=== PATIENT | male | born 1945 | race Caucasian/White ===

== ENCOUNTER → 2019-01-25 | Outpatient (CLI) | payer MEDICARE, BC ==
--- NOTE | 2019-01-25 15:29 | US ---
EXAMINATION TYPE: US carotid duplex BILAT DATE OF EXAM: 01/25/2019 COMPARISON: NONE CLINICAL HISTORY: I65.23 Occlusion/stenosis of bilateral carotid arteries,I34.0 Nonrheumatic mitrall; prior smoker; recent chest pain EXAM MEASUREMENTS: RIGHT: Peak Systolic Velocity (PSV) cm/sec ----- Right CCA: 74.5 ----- Right ICA: 87.7 ----- Right ECA: 114.1 ICA/CCA ratio: 1.2 RIGHT: End Diastole cm/sec ----- Right CCA: 19.4 ----- Right ICA: 20.5 ----- Right ECA: 18.8 LEFT: Peak Systolic Velocity (PSV) cm/sec ----- Left CCA: 82.2 ----- Left ICA: 83.3 ----- Left ECA: 72.2 ICA/CCA ratio: 1.0 LEFT: End Diastole cm/sec ----- Left CCA: 18.3 ----- Left ICA: 18.3 ----- Left ECA: 9.5 VERTEBRALS (direction of flow): Right Vertebral: Antegrade Left Vertebral: Antegrade Rhythm: Normal Mild intimal wall changes are noted at right carotid bifurcation. Mild to moderate intimal wall vasquez es are seen in left ICA. PSV is wnl bilaterally. Grayscale, color Doppler, spectral Doppler imaging performed of the carotid arteries. Waveform analys is does not show significant stenosis of the internal carotid arteries. IMPRESSION: No hemodynamic significant stenosis of the proximal internal carotid arteries bilaterall y by Doppler criteria, an indirect measurement of carotid stenosis
--- NOTE | 2019-01-26 11:17 | ECHOF ---
Referral Reason:I65.23 Occlusion/stenosis,I34.0 Nonrheumatic sobia MEASUREMENTS -------- HEIGHT: 157.5 cm WEIGHT: 105.7 kg BP: RVIDd: 3.6 cm (< 3.3) IVSd: 1.3 cm (0.6 - 1.1) LVIDd: 4.6 cm (3.9 - 5.3) LVPWd: 1.2 cm (0.6 - 1.1) IVSs: 1.5 cm LVIDs: 3.6 cm LVPWs: 1.3 cm LA Diam: 4.0 cm (2.7 - 3.8) LAESV Index (A-L): 27.18 ml/m Ao Diam: 3.2 cm (2.0 - 3.7) AV Cusp: 2.0 cm (1.5 - 2.6) LA Diam: 4.8 cm (2.7 - 3.8) EPSS: 0.4 cm MV E Jarrett: 0.60 m/s MV DecT: 185 ms MV A Jarrett: 0.94 m/s MV E/A Ratio: 0.64 RAP: 5.00 mmHg RVSP: 11.11 mmHg MV EF SLOPE: 63.08 mm/s (70 - 150) MV EXCURSION: 2.11 cm (> 18.000) FINDINGS -------- Sinus rhythm. This was a technically adequate study. The left ventricular size is normal. There is mild concentric left ventricular hypertrophy. Overa ll left ventricular systolic function is low-normal with, an EF between 50 - 55 %. The right ventricle is normal in size. The left atrial size is normal. The right atrial size is normal. The aortic valve is trileaflet, and appears structurally normal. No aortic stenosis or regurgitation. Mild mitral regurgitation is present. Mild tricuspid regurgitation present. There is no evidence of pulmonary hypertension. The right v entricular systolic pressure, as measured by Doppler, is 11.11mmHg. There is no pulmonic regurgitation present. The aortic root size is normal. There is no pericardial effusion. CONCLUSIONS -------- 1. The left ventricular size is normal. 2. There is mild concentric left ventricular hypertrophy. 3. Overall left ventricular systolic function is low-normal with, an EF between 50 - 55 %. 4. The right ventricle is normal in size. 5. The left atrial size is normal. 6. The right atrial size is normal. 7. The aortic valve is trileaflet, and appears structurally normal. No aortic stenosis or regurgitati on. 8. Mild mitral regurgitation is present. 9. Mild tricuspid regurgitation present. 10. There is no evidence of pulmonary hypertension. 11. The right ventricular systolic pressure, as measured by Doppler, is 11.11mmHg. 12. There is no pulmonic regurgitation present. 13. The aortic root size is normal. 14. There is no pericardial effusion. CANDLE EXTRUSION MACHINE OPERATOR: Ayse Beckford RDCS
== END ==
LOC: RADECHMAIN 13:09
PROVIDERS: ATTEND Internal Medicine
DX: I65.23 Occlusion and stenosis of bilateral carotid arteries (principal); I08.1 Rheumatic disorders of both mitral and tricuspid valves
CPT/HCPCS: 93306; 93880

== ENCOUNTER 2020-07-17 11:59 | Inpatient (IN) | payer MEDICARE, BC ==
--- NOTE | 2020-07-17 12:55 | ED ---
General Adult HPI - General Chief complaint: Back Pain/Injury Stated complaint: Back Pain Time Seen by Provider: 07/17/20 12:17 Source: patient, EMS, RN notes reviewed Mode of arrival: EMS Limitations: no limitations - History of Present Illness Initial comments: Patient is a pleasant 75-year-old male presenting to the emergency department with lower back pain. Onset of symptoms was a week ago. PATIENT WAS BENDING DOWN. PATIENT HAD SUDDEN DISCOMFORT OF HIS RIGHT SCIATIC REGION EXTENDING ON THE RIGHT LEG. NO WEAKNESS. NO LOSS OF SENSATION. PATIENT DOES HAVE HISTORY OF SCIATICA SEVERAL TIMES PREVIOUSLY. PATIENT HAS SEEN A PRACTITIONER RECENTLY AND WAS GIVEN MUSCLE RELAXERS AND STEROIDS. NO TENDONS RETENTION OR BOWEL OR BLADDER. NO ABDOMINAL PAIN. - Related Data Home Medications Medication Instructions Recorded Confirmed Acetaminophen Tab [Tylenol Tab] 1,000 mg PO Q6HR PRN 07/17/20 07/17/20 Aspirin 81 mg PO HS 07/17/20 07/17/20 Cholecalciferol [Vitamin D3 (25 1,000 unit PO HS 07/17/20 07/17/20 Mcg = 1000 Iu)] Flexeril (Unknown Dose) 1 tab PO DIRECTED 07/17/20 07/17/20 Glucosamine/Chondr [place] A Sod [Osteo 1 tab PO HS 07/17/20 07/17/20 Bi-Flex Caplet] Benjamin-3 Fatty Acids/Fish Oil [Fish 1 cap PO HS 07/17/20 07/17/20 Oil 1,000 mg Softgel] Solu-Medrol 120 mg IM ONCE 07/17/20 07/17/20 methylPREDNISolone [Medrol Dose See Taper PO DIRECTED 07/17/20 07/17/20 Pack] Allergies Allergy/AdvReac Type Severity Reaction Status Date / Time No Known Allergies Allergy Verified 07/17/20 13:04 Review of Systems ROS Statement: Those systems with pertinent positive or pertinent negative responses have been documented in the HPI. ROS Other: All systems not noted in ROS Statement are negative. Constitutional: Denies: fever Eyes: Denies: eye pain ENT: Denies: ear pain Respiratory: Denies: cough Cardiovascular: Denies: chest pain Endocrine: Denies: fatigue Gastrointestinal: Denies: abdominal pain Genitourinary: Denies: dysuria Musculoskeletal: Reports: as per HPI, back pain Skin: Denies: rash Neurological: Denies: weakness Past Medical History Past Medical History: No Reported History History of Any Multi-Drug Resistant Organisms: None Reported Past Surgical History: Orthopedic Surgery Past Psychological History: No Psychological Hx Reported Smoking Status: Former smoker Past Alcohol Use History: Rare Past Drug Use History: None Reported General Exam Limitations: no limitations General appearance: alert, in no apparent distress Head exam: Present: normocephalic Eye exam: Present: normal appearance Neck exam: Present: normal inspection Respiratory exam: Present: normal lung sounds bilaterally Cardiovascular Exam: Present: regular rate, normal rhythm Expanded Peripheral pulses: 2+: Posterior Tibialis (R), Posterior Tibialis (L), Dorsalis Pedis (R), Dorsalis Pedis (L) GI/Abdominal exam: Present: soft. Absent: distended, tenderness, pulsatile mass Extremities exam: Present: normal inspection. Absent: pedal edema, calf tenderness Back exam: Present: tenderness (Mild tenderness right sacroiliac region). Absent: vertebral tenderness Neurological exam: Present: alert. Absent: motor sensory deficit Expanded Sensory exam: Lower Extremity Light Touch: Normal Motor strength exam: RUE: 5, LUE: 5, RLE: 5, LLE: 5 Eye Response: (4) open spontaneously Motor Response: (6) obeys commands Verbal Response: (5) oriented Psychiatric exam: Present: normal affect, normal mood Skin exam: Present: normal color Course Vital Signs 07/17/20 12:01 Temperature 98.7 F Pulse Rate 79 Respiratory 18 Rate Blood Pressure 141/94 O2 Sat by Pulse 95 Oximetry EKG Findings - EKG Comments: EKG Findings:: Normal sinus rhythm 82. WI 202. QRS 108. QT 370. QTc 441. Normal axis. Inferior Q waves. Septal Q waves. No acute ST change. Medical Decision Making - Medical Decision Making Patient reevaluated. Patient was able to ambulate however had significant discomfort. Case was discussed in detail with Dr. Ba who will admit his patient and does request blood work and sed rate as well as computed tomography scan and orthopedic evaluation. Patient updated. - Radiology Data Radiology results: image reviewed (Lumbar x-ray shows degenerative disc disease and acid arthropathy. X-ray of the right hip shows no fracture or dislocation. Chronic changes proximal femur, difficult to exclude underlying infection.) Disposition Clinical Impression: Sciatica, Hip pain, Ataxia Disposition: ADMITTED IP TO THIS HOSP Is patient prescribed a controlled substance at d/c from ED?: No Referrals: Clarita Ba MD [Primary Care Provider] - 1-2 days Decision Time: 14:59
--- NOTE | 2020-07-17 13:30 | XR ---
EXAMINATION TYPE: XR Hip RT and AP Pelvis DATE OF EXAM: 07/17/2020 COMPARISON: NONE HISTORY: Pain TECHNIQUE: A single AP view of the pelvis is obtained. Two views of the right hip are obtained. FINDINGS: There is no acute fracture/dislocation evident in the pelvis. The hip and sacroiliac join ts appear symmetric and unremarkable. The overlying soft tissue appears unremarkable. Two views of right hip show no acute fracture or dislocation. There is cortical thickening, distortio n of the proximal right femur, there is an indwelling screw and probable heterotopic new bone formati on. Vascular calcifications are present within the pelvis. Possible injection granuloma present, oval calcification is indeterminate and measures 2.5 cm in cephalad to caudal dimension at the level of t he proximal right femur. IMPRESSION: There is no acute fracture or dislocation in the pelvis or right hip. Chronic changes of the proximal right femur, difficult to exclude underlying infection, bone scan may be of benefit as indicated.
--- NOTE | 2020-07-17 13:33 | XR ---
Lumbar spine HISTORY: Chronic low back pain 3 views of the lumbar spine Lumbar vertebral bodies show preserved height, alignment, and bone mineralization. There is multileve l spondylosis. Sclerosis is present in the posterior elements of the lower lumbar spine. There is a m ild spinal curvature. Some mild loss of disc height L4-5 and L5-S1. Atherosclerotic vascular calcific ations present within the aorta. IMPRESSION: Degenerative disc disease and facet arthropathy.
[2020-07-17] MEDS ORDERED: NALOXONE 0.4 MG/ML 1 ML VIAL IV PRN (15:00)
[2020-07-17] MEDS ORDERED: traMADol 50 MG TAB PO PRN (15:00)
[2020-07-17 15:45] LABS: Basophils # (A) 0.1 k/uL (0-0.2); Basophils % (A) 0 %; Eosinophils # (A) 0.1 k/uL (0-0.7); Eosinophils % (A) 1 %; HCT 46.1 % (39.0-53.0); HGB 15.4 gm/dL (13.0-17.5); Lymphocytes # (A) 0.8 k/uL (1.0-4.8); Lymphocytes % (A) 8 %; MCH 29.5 pg (25.0-35.0); MCHC 33.4 g/dL (31.0-37.0); MCV 88.3 fL (80.0-100.0); Mean Platelet Volume 6.8; Monocytes # (A) 0.3 k/uL (0-1.0); Monocytes % (A) 3 %; Neutrophils # (A) 9.1 k/uL (1.3-7.7); Neutrophils % (A) 87 %; Platelet Count 211 k/uL (150-450); RBC 5.21 m/uL (4.30-5.90); RDW 12.6 % (11.5-15.5); WBC 10.4 k/uL (3.8-10.6)
[2020-07-17 15:55] LABS: Partial Thromboplastin Time 24.3 sec (22.0-30.0); Prothrombin Time 10.8 sec (9.0-12.0)
[2020-07-17 16:02] LABS: Chloride 105 mmol/L (98-107)
[2020-07-17 16:04] LABS: ALT 19 U/L (4-49); AST 24 U/L (17-59); African American GFR (CKD) >90 (>60 ml/min/1.73 sqM); Albumin 4.4 g/dL (3.5-5.0); Alkaline Phosphatase 56 U/L (38-126); Anion Gap 7 mmol/L; Blood Urea Nitrogen 16 mg/dL (9-20); Calcium 9.2 mg/dL (8.4-10.2); Carbon Dioxide 24 mmol/L (22-30); Glucose 116 mg/dL (74-99); Non-African American GFR(CKD) 89 (>60 ml/min/1.73 sqM); Potassium 4.5 mmol/L (3.5-5.1); Sodium 136 mmol/L (137-145); Total Bilirubin 1.4 mg/dL (0.2-1.3); Total Protein 7.5 g/dL (6.3-8.2)
[2020-07-17 16:28] LABS: Erythrocyte Sedimentation Rate 72 mm/hr (0-15)
--- NOTE | 2020-07-17 16:41 | CT ---
EXAMINATION TYPE: CT hip RT w con DATE OF EXAM: 07/17/2020 COMPARISON: X-ray 07/17/2020 HISTORY: Right hip pain, eval for infection. CT DLP: 956.1 mGycm Automated exposure control for dose reduction was used. CONTRAST: Performed with IV Contrast, patient injected with 100 mL of Isovue 300. FINDINGS: There is arthropathy of the hip with a chronic appearing deformity of the proximal diaphysis of the f emur. Appears to be metallic screw traversing the proximal diaphysis of the femur. No destructive neo nges. Herniation pit involving the right femoral neck incidentally noted. Hypertrophic change of the acetabulum can be associated with femoral acetabular impingement. Heterotopic ossification adjacent t o the greater trochanter. Hypertrophic and degenerative change of the lower lumbar spine. IMPRESSION: CHRONIC DEFORMITY WITH POSTSURGICAL SCREW WITHIN THE PROXIMAL FEMUR. NO DESTRUCTIVE CHANGE. NO ACUTE FRACTURE. IF THERE IS CLINICAL CONCERN FOR INFECTION CORRELATE WITH TRIPLE PHASE BONE SCAN.
[2020-07-17] MEDS: MORPHINE SULFATE 4 MG/ML SYRINGE IV PRN ×2 (17:42→21:29)
[2020-07-17] MEDS: SODIUM CHLORIDE 0.9% 1,000 ML IV SCH (21:28)
[2020-07-18] MEDS: HEPARIN SODIUM,PORCINE 5,000 UNIT/ML 1 ML VIAL SQ SCH ×4 (00:17→23:15)
[2020-07-18] MEDS: MORPHINE SULFATE 4 MG/ML SYRINGE IV PRN ×3 (04:39→14:17)
[2020-07-18 06:14] LABS: Basophils # (A) 0.1 k/uL (0-0.2); Basophils % (A) 1 %; Eosinophils # (A) 0.1 k/uL (0-0.7); Eosinophils % (A) 1 %; HCT 43.5 % (39.0-53.0); Lymphocytes % (A) 22 %; MCHC 32.2 g/dL (31.0-37.0); MCV 90.2 fL (80.0-100.0); Mean Platelet Volume 7.1; Monocytes # (A) 0.7 k/uL (0-1.0); Monocytes % (A) 7 %; Neutrophils # (A) 6.4 k/uL (1.3-7.7); Neutrophils % (A) 68 %; Platelet Count 199 k/uL (150-450); RBC 4.82 m/uL (4.30-5.90); RDW 12.8 % (11.5-15.5); WBC 9.4 k/uL (3.8-10.6)
[2020-07-18] MEDS: PANTOPRAZOLE 40 MG TABLET PO SCH (08:48)
[2020-07-18] MEDS: SODIUM CHLORIDE 0.9% 1,000 ML IV SCH ×2 (09:02→23:15)
[2020-07-18 09:03] LABS: African American GFR (CKD) 100.6 (60.0-200.0); Albumin/Globulin Ratio 1.82 (1.60-3.17); Anion Gap 8.3 mmol/L (4.00-12.00); BUN/Creat Ratio 26.25 Ratio (12.00-20.00); C Reactive Protein 1.8 mg/dL (0.0-0.8); Calcium 8.6 mg/dL (8.7-10.3); Carbon Dioxide 26.7 mmol/L (21.6-31.8); Globulin 2.2 g/dL (1.6-3.3); Non-African American GFR(CKD) 86.8 (60.0-200.0); Potassium 4.5 mmol/L (3.5-5.5); Total Bilirubin 1.1 mg/dL (0.3-1.2); Total Protein 6.2 g/dL (6.2-8.2)
[2020-07-18] MEDS ORDERED: ONDANSETRON 4 MG/2 ML VIAL IVP PRN (11:38)
[2020-07-18 12:39] LABS: Erythrocyte Sedimentation Rate 17 mm/Hr (0-20)
--- NOTE | 2020-07-18 14:13 | NM ---
EXAMINATION TYPE: NM bone 3 phase DATE OF EXAM: 07/18/2020 COMPARISON: CT scan 07/15/2020 HISTORY: Pain Triple phase bone scintigraphy was performed following the injection of 24.3 mCi Tc 99m MDP. Immedia te images and 5.5 hours post injection images acquired. FINDINGS: There is increased flow to the right thigh on the perfusion images. There is asymmetric faint increased uptake along the lateral margin of the right thigh on the soft ti ssue blood pool images. There is faint uptake involving the deformity of the proximal right femur likely chronic and related to previous surgery. IMPRESSION: 1. No diagnostic evidence of osteomyelitis. The faint asymmetric increased uptake involving the right femur likely related to the marked deformity and previous surgery and trauma to the right femur. Cor relate clinically. 2. There is asymmetric flow. If there is concern for a cellulitis correlate clinically.
[2020-07-18] MEDS ORDERED: SENNOSIDES 8.6 MG TAB PO PRN (14:31)
[2020-07-18] MEDS: LOSARTAN 25 MG TAB PO SCH (14:34)
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
--- NOTE | 2020-07-18 15:54 | P.CNOR ---
History of Present Illness - [facility] Consult date: 07/18/20 Consult reason: other (Lumbar radiculopathy) History of present illness: Patient is a pleasant 75-year-old male seen at bedside this afternoon consultation for right leg pain. Patient states that he bent over proximally 1 week ago and developed sudden sharp shooting pain down his right leg. He states pain rates down into the top his foot at times. He has intermittent numbness or tingling. He acknowledges he has no groin or hip pain with range of motion. He has pain with straight leg raising. He is a prior ORIF of the right femur in the 1960s. He's had no recent trauma or injury to the right hip. He denies calf pain, fever, chills, chest pain, shortness breath, nausea, vomiting, dizziness, headaches, slurred speech or other. Review of Systems All systems: negative Constitutional: Denies chills, Denies fever Eyes: denies blurred vision, denies pain Ears, nose, mouth and throat: Denies headache, Denies sore throat Cardiovascular: Denies chest pain, Denies shortness of breath Respiratory: Denies cough Gastrointestinal: Denies abdominal pain, Denies diarrhea, Denies nausea, Denies vomiting Musculoskeletal: Denies myalgias Integumentary: Denies pruritus, Denies rash Neurological: Denies numbness, Denies weakness Psychiatric: Denies anxiety, Denies depression Endocrine: Denies fatigue, Denies weight change Past Medical History Past Medical History: No Reported History History of Any Multi-Drug Resistant Organisms: None Reported Past Surgical History: Orthopedic Surgery Past Psychological History: No Psychological Hx Reported Smoking Status: Former smoker Past Alcohol Use History: Rare Additional Past Alcohol Use History / Comment(s): Patient was a smoker of one pack per day for 10 years and quit over 30 years ago. He drinks alcohol rarely. No marijuana or illicit drug use. He is retired from . He is and lives at home with his . Past Drug Use History: None Reported - Past Family History Father Additional Family Medical History / Comment(s): Father at age 96 with history of diabetes. Mother Additional Family Medical History / Comment(s): Mother at age 88 with history of osteoarthritis. Sister(s) Additional Family Medical History / Comment(s): Patient has 2 sisters and one is alive at age 81 with history of heart problems. One has multiple medical problems. Brother(s) Additional Family Medical History / Comment(s): Patient has 3 brothers. One has osteoarthritis, one has balance issues. They may both have hypertension. Patient has 2 sons. One son has history of diabetes and neurosarcoidosis, chronic kidney disease. One son has sarcoidosis. Medications and Allergies Home Medications Medication Instructions Recorded Confirmed Type Acetaminophen Tab [Tylenol Tab] 1,000 mg PO Q6HR PRN 07/17/20 07/17/20 History Aspirin 81 mg PO HS 07/17/20 07/17/20 History Cholecalciferol [Vitamin D3 (25 1,000 unit PO HS 07/17/20 07/17/20 History Mcg = 1000 Iu)] Flexeril (Unknown Dose) 1 tab PO DIRECTED 07/17/20 07/17/20 History Glucosamine/Chondr [place] A Sod [Osteo 1 tab PO HS 07/17/20 07/17/20 History Bi-Flex Caplet] [place]-3 Fatty Acids/Fish Oil [Fish 1 cap PO HS 07/17/20 07/17/20 History Oil 1,000 mg Softgel] Solu-Medrol 120 mg IM ONCE 07/17/20 07/17/20 History methylPREDNISolone [Medrol Dose See Taper PO DIRECTED 07/17/20 07/17/20 History Pack] Allergies Allergy/AdvReac Type Severity Reaction Status Date / Time No Known Allergies Allergy Verified 07/17/20 13:04 Physical Examination Inspection of the low back is benign. There is no step-off, erythema, wounds or evidence of fluid collection. There is paraspinal spasming. Right hip is benign to inspection. There is well-healed surgical wound the lateral aspect of the right hip. There is no deformity. He has no pain with internal or external rotation of the right hip. He has pain with right straight leg raising consistent with radiculopathy. Motor is grossly intact in the hip flexors, quadriceps, anterior tibialis and gastrocsoleus. He has weakness in the right EHL proximally 4 out of 5. The remainder is 5 out of 5. Sensation to light t ouch is intact L2 through S1 equal bilaterally. Reflexes are 1+ knee jerk and ankle jerk. There is no clonus or pathological reflexes. Calf is soft nontender. The 2+ dorsalis pedis pulse was 2 second capillary refill. Results X-rays and CT of the right hip show no fracture or evidence of infection/osteomyelitis. There is evidence previous hardware and prior surgery. No acute findings. There is mild degenerative changes. - Labs Labs: Abnormal Lab Results - Last 24 Hours (Table) 07/17/20 07/17/20 07/18/20 Range/Units 15:29 15:29 05:40 Neutrophils # 9.1 H (1.3-7.7) k/uL Lymphocytes # 0.8 L (1.0-4.8) k/uL ESR 72 H (0-15) mm/hr Sodium 136 L (137-145) mmol/L BUN/Creatinine Ratio 26.25 H (12.00-20.00) Ratio Glucose 116 H (74-99) mg/dL Calcium 8.6 L (8.7-10.3) mg/dL Total Bilirubin 1.4 H (0.2-1.3) mg/dL C-Reactive Protein 1.8 H (0.0-0.8) mg/dL H & H 07/17/20 07/18/20 Range/Units 15:29 05:40 Hgb 15.4 14.0 (13.0-17.5) gm/dL Hct 46.1 43.5 (39.0-53.0) % Coagulation 07/17/20 Range/Units 15:29 INR 1.0 (<1.2) Result Diagrams: 07/18/20 05:40 07/18/20 05:40 - Diagnostic results Hip x-ray: report reviewed, image reviewed Hip CT: report reviewed, image reviewed Assessment and Plan (1) Sciatica Narrative/Plan: Patient is likely suffering from lumbar radiculopathy on the right side with weakness in the EHL correlating with the L5 nerve root. The right hip joint itself appears be benign. He may be weightbearing as tolerated. We'll obtain MRI of the lumbar spine to further assess for neural impingement. We'll also start him on corticosteroids. Continue with pain management per primary team. We'll follow up after the MRI and make further recommendations as appropriate. Current Visit: Yes Status: Acute Priority: Medium Code(s): M54.30 - SCIATICA, UNSPECIFIED SIDE SNOMED Code(s): 95105179 (2) Lumbar radiculopathy, acute Current Visit: Yes Status: Acute Priority: Medium Code(s): M54.16 - RADICULOPATHY, LUMBAR REGION SNOMED Code(s): 841553851 Time with Patient: Less than 30
[2020-07-18] MEDS ORDERED: methocarbamoL 500 MG TAB PO PRN (16:08)
[2020-07-18] MEDS: SENNOSIDES-DOCUSATE SODIUM 1 EACH TAB PO SCH (16:33)
[2020-07-18] MEDS: methylPREDNISolone SOD SUCCI 40 MG/ML 1 ML VIAL IV SCH ×2 (16:33→23:15)
[2020-07-18] MEDS: HYDROcodone/APAP 5-325MG 1 EACH TAB PO PRN ×2 (16:35→23:21)
--- NOTE | 2020-07-18 18:48 | MR ---
EXAMINATION TYPE: MR lumbar spine wo con DATE OF EXAM: 07/18/2020 COMPARISON: None HISTORY: Low back pain into rt leg CONTRAST: 0 mL intravenous Gadavist. TECHNIQUE: Multiplanar, multisequence images of the lumbar spine were acquired. FINDINGS: L5-S1: There is central disc bulge into the epidural space. No thecal sac contact or exiting nerve ro ot contact is evident. There is increased signal within the posterior disc space on T2-weighted seque nces compatible with an annular tear. No spinal canal stenosis. No foraminal stenosis. L4-L5: There is a moderately large right paracentral disc herniation extending beyond the endplate of L5. This has exiting nerve root compression and displacement. No AP spinal canal stenosis is present . The neural foramen are patent. L3-L4: Mild disc bulge has anterior thecal sac flattening. No spinal canal stenosis. No foraminal s tenosis. Facet hypertrophy is present with posterior lateral thecal sac compression. Mild lateral can al narrowing at the ligamentum flavum laxity may be present. L2-L3: Broad-based disc bulge is present with mild anterior thecal sac flattening No spinal canal st enosis. No foraminal stenosis. Facet hypertrophy is posterior lateral thecal sac compression on the right.. L1-L2: No significant disc bulge or disc herniation. No spinal canal stenosis. No foraminal stenosi s. . T12-L1: No significant disc bulge or disc herniation. No spinal canal stenosis. No foraminal stenos is. . Cyst is on the left kidney. Cord terminates at the T12-L1 level. IMPRESSION: 1. Moderate to large right paracentral disc herniation L4-5 with the exiting L4 nerve root displaceme nt correlate with the radicular symptoms. 2. Annular tear L5-S1 without thecal sac or exiting nerve root contact. 3. Mild disc bulging L3-4, L2-3
[2020-07-18 20:43] LABS: Glucose,Whole Blood 142 mg/dL (75-99)
[2020-07-18] MEDS ORDERED: SENNOSIDES 8.6 MG TAB PO SCH (21:00)
--- NOTE | 2020-07-18 22:17 | P.CONS ---
History of Present Illness - Reason for Consult Consult date: 07/18/20 Right hip pain rule out osteomyelitis Requesting physician: Clarita Ba - Chief Complaint Back pain and right hip pain worsening x few days - History of Present Illness Patient is a 75-year-old male with a past medical history significant for chronic back pain and she had taken in this patient also have a history of femoral fracture in 1962 and did have a operative repair of the same with that AND pains patient is now presenting to [facility] ER with chief complaints of right hip pain that has been progressively getting worse for the last few days patient denies having a history of fall or trauma and she does in the pain to be more of a dull aching to sharp and is radiating across the back to the right hip and the leg area and densities almost 10 out of 10 patient denies having any fever or any chills. Denies having any swelling or any redness to the right hip area with the symptom for the patient presented to [facility] ER the patient was evaluated by the physician on arrival. The patient has been afebrile, initial sed rate was 72 repeat this morning showing 17, CRP of 1.8, the patient did have x-rays of the pelvis right hip and no evidence of any fracture or dislocation chronic changes of the proximal right femur difficult to exclude underlying infection, the patient subsequently did have a CT of the right hip 80 shows chronic deformity with postsurgical scleral and the possible fever no destructive changes no acute fracture if there is concern for infection correlate with triple phase bone scan per radiology recommendation which was done and was not suspicious for cellulitis either infectious disease was consulted [facility] to rule outOsteomyelitis Review of Systems Positive point has been mentioned in the HPI rest of the systems are negative Past Medical History Past Medical History: No Reported History History of Any Multi-Drug Resistant Organisms: None Reported Past Surgical History: Orthopedic Surgery Past Psychological History: No Psychological Hx Reported Smoking Status: Former smoker Past Alcohol Use History: Rare Additional Past Alcohol Use History / Comment(s): Patient was a smoker of one pack per day for 10 years and quit over 30 years ago. He drinks alcohol rarely. No marijuana or illicit drug use. He is retired from . He is and lives at home with his . Past Drug Use History: None Reported - Past Family History Father Additional Family Medical History / Comment(s): Father at age 96 with history of diabetes. Mother Additional Family Medical History / Comment(s): Mother at age 88 with history of osteoarthritis. Sister(s) Additional Family Medical History / Comment(s): Patient has 2 sisters and one is alive at age 81 with history of heart problems. One has multiple medical problems. Brother(s) Additional Family Medical History / Comment(s): Patient has 3 brothers. One has osteoarthritis, one has balance issues. They may both have hypertension. Patient has 2 sons. One son has history of diabetes and neurosarcoidosis, chronic kidney disease. One son has sarcoidosis. Medications and Allergies Home Medications Medication Instructions Recorded Confirmed Type Acetaminophen Tab [Tylenol Tab] 1,000 mg PO Q6HR PRN 07/17/20 07/17/20 History Aspirin 81 mg PO HS 07/17/20 07/17/20 History Cholecalciferol [Vitamin D3 (25 1,000 unit PO HS 07/17/20 07/17/20 History Mcg = 1000 Iu)] Flexeril (Unknown Dose) 1 tab PO DIRECTED 07/17/20 07/17/20 History Glucosamine/Chondr [place] A Sod [Osteo 1 tab PO HS 07/17/20 07/17/20 History Bi-Flex Caplet] [place]-3 Fatty Acids/Fish Oil [Fish 1 cap PO HS 07/17/20 07/17/20 History Oil 1,000 mg Softgel] Solu-Medrol 120 mg IM ONCE 07/17/20 07/17/20 History methylPREDNISolone [Medrol Dose See Taper PO DIRECTED 07/17/20 07/17/20 History Pack] Allergies Allergy/AdvReac Type Severity Reaction Status Date / Time No Known Allergies Allergy Verified 07/17/20 13:04 Physical Exam Vitals: Vital Signs Temp Pulse Pulse Resp BP BP Pulse Ox 07/18/20 14:46 98.4 F 78 18 171/83 94 L 07/18/20 12:01 98.6 F 75 20 158/91 92 L 07/18/20 07:00 98.1 F 72 18 154/84 94 L 07/18/20 00:40 97.9 F 82 16 146/74 92 L 07/17/20 19:22 97.9 F 78 16 159/84 95 07/17/20 16:38 74 17 148/89 Intake and Output 07/18/20 07/18/20 07/18/20 06:59 14:59 22:59 Output Total 400 Balance -400 Output: Urine 400 Other: # Voids 3 GENERAL DESCRIPTION: An elderly male lying in bed, no distress. No tachypnea or accessory muscle of respiration use. HEENT: Shows Pallor , no scleral icterus. Oral mucous membrane is dry. No pharyngeal erythema or thrush NECK: Trachea central, no thyromegaly. LUNGS: Unlabored breathing. Clear to auscultation anteriorly. No wheeze or crac kle. HEART: S1, S2, regular rate and rhythm. No loud murmur ABDOMEN: Soft, no tenderness , guarding or rigidity, no organomegaly EXTREMITIES: No edema of feet. Right hip currently with no swelling no redness no significant point tenderness SKIN: No rash, no masses palpable. NEUROLOGICAL: The patient is awake, alert, oriented x3, mood and affect normal. Results CBC & Chem 7: 07/18/20 05:40 07/18/20 05:40 Labs: Abnormal Lab Results - Last 24 Hours (Table) 07/17/20 07/17/20 07/18/20 Range/Units 15:29 15:29 05:40 ESR 72 H (0-15) mm/hr Sodium 136 L (137-145) mmol/L BUN/Creatinine Ratio 26.25 H (12.00-20.00) Ratio Glucose 116 H (74-99) mg/dL Calcium 8.6 L (8.7-10.3) mg/dL Total Bilirubin 1.4 H (0.2-1.3) mg/dL C-Reactive Protein 1.8 H (0.0-0.8) mg/dL Assessment and Plan Assessment: 1- patient presented to hospital with right hip pain in this patient who did have chronic back pain for underlying prostatitis and a previous history of right femur fracture patient currently denies any fever and no elevated white count sed rate and CRP not elevated and is no evidence of any swelling or redness to the right hip area clinically suspicious for underlying septic arthritis and more likely related to arthritis of the right hip or radiating pain from his lumbosacral spine area, for which an MRI has been ordered currentl y pending (1) Right hip pain Current Visit: Yes Status: Acute Code(s): M25.551 - PAIN IN RIGHT HIP SNOMED Code(s): 53041140 Plan: 1- clinic suspicion is low for cellulitis hence we'll hold on any systemic antibiotic therapy at this point 2-await MRI of the lumbosacral spine completed 3- pain management for admitting team We will follow on clinical condition and cultures to further adjust medication if needed Thank you for this consultation will follow this patient with you Time with Patient: Greater than 30
[2020-07-19] MEDS: HEPARIN SODIUM,PORCINE 5,000 UNIT/ML 1 ML VIAL SQ SCH ×3 (07:17→23:13)
[2020-07-19] MEDS: PANTOPRAZOLE 40 MG TABLET PO SCH (07:27)
[2020-07-19] MEDS: methylPREDNISolone SOD SUCCI 40 MG/ML 1 ML VIAL IV SCH ×3 (07:27→23:12)
[2020-07-19] MEDS: LOSARTAN 25 MG TAB PO SCH (07:27)
[2020-07-19] MEDS: HYDROcodone/APAP 5-325MG 1 EACH TAB PO PRN ×3 (07:27→23:13)
[2020-07-19] MEDS: SENNOSIDES-DOCUSATE SODIUM 1 EACH TAB PO SCH (07:27)
[2020-07-19 07:37] LABS: Glucose,Whole Blood 137 mg/dL (75-99)
--- NOTE | 2020-07-19 10:38 | P.CNOR ---
History of Present Illness - [facility] Consult date: 07/19/20 Consult reason: other (right lower extremity radiculopathy) History of present illness: patient is a very pleasant 75-year-old male with chief complaint of right lower extremity and hip pain. Patient is an avid golfer and normally gets around quite well but he says that one week ago he was lifting his boat trailer and had sudden acute pain in his right hip down his right lower extremity. He says that he has had issues with his back since 1962 and once a year or so he has is acute pain in his right leg but this is worse than normal. He says the pain extends down the back of his hip and thigh down to his calf and foot. He denies problems with his left lower extremity. he was initially worked up in regards to his hip is everywhere about possible infection at the hip but that has shown to be negative. He denies changes in his bowel or bladder function. He denies any fevers chills. Denies any chest pain or shortness breath. Review of Systems as stated per HPI. He says that his leg feels like to give out when he tries to move but he was able get out of bed today with therapy and he feels like he did okay. He denies changes bowel bladder function. Denies any fevers chills. Denies any chest pain. Past Medical History Past Medical History: No Reported History History of Any Multi-Drug Resistant Organisms: None Reported Past Surgical History: Orthopedic Surgery Past Psychological History: No Psychological Hx Reported Smoking Status: Former smoker Past Alcohol Use History: Rare Additional Past Alcohol Use History / Comment(s): Patient was a smoker of one pack per day for 10 years and quit over 30 years ago. He drinks alcohol rarely. No marijuana or illicit drug use. He is retired from . He is and lives at home with his . Past Drug Use History: None Reported - Past Family History Father Additional Family Medical History / Comment(s): Father at age 96 with his tory of diabetes. Mother Additional Family Medical History / Comment(s): Mother at age 88 with history of osteoarthritis. Sister(s) Additional Family Medical History / Comment(s): Patient has 2 sisters and one is alive at age 81 with history of heart problems. One has multiple medical problems. Brother(s) Additional Family Medical History / Comment(s): Patient has 3 brothers. One has osteoarthritis, one has balance issues. They may both have hypertension. Patient has 2 sons. One son has history of diabetes and neurosarcoidosis, chronic kidney disease. One son has sarcoidosis. Medications and Allergies Home Medications Medication Instructions Recorded Confirmed Type Acetaminophen Tab [Tylenol Tab] 1,000 mg PO Q6HR PRN 07/17/20 07/17/20 History Aspirin 81 mg PO HS 07/17/20 07/17/20 History Cholecalciferol [Vitamin D3 (25 1,000 unit PO HS 07/17/20 07/17/20 History Mcg = 1000 Iu)] Flexeril (Unknown Dose) 1 tab PO DIRECTED 07/17/20 07/17/20 History Glucosamine/Chondr [place] A Sod [Osteo 1 tab PO HS 07/17/20 07/17/20 History Bi-Flex Caplet] [place]-3 Fatty Acids/Fish Oil [Fish 1 cap PO HS 07/17/20 07/17/20 History Oil 1,000 mg Softgel] Solu-Medrol 120 mg IM ONCE 07/17/20 07/17/20 History methylPREDNISolone [Medrol Dose See Taper PO DIRECTED 07/17/20 07/17/20 History Pack] Allergies Allergy/AdvReac Type Severity Reaction Status Date / Time No Known Allergies Allergy Verified 07/17/20 13:04 Physical Examination Osteopathic Statement: *. No significant issues noted on an osteopathic structural exam other than those noted in the History and Physical/Consult. - L Spine: dermatomal strength & reflexes right Strength: hip flexion: 5/5 (His back is nontender over the midline. Pelvis is stable. He has positive straight leg raise on the right. He has sustained dorsal flexion plantarflexion and EHL with 5 out of 5 strength. He has some break away strength of his right thigh with hip flexion) Results - Labs Labs: Abnormal Lab Results - Last 24 Hours (Table) 07/18/20 07/19/20 Range/Units 20:41 07:25 POC Glucose (mg/dL) 142 H 137 H (75-99) mg/dL Microbiology - Last 24 Hours (Table) 07/17/20 15:29 Blood Culture - Preliminary Blood No Growth after 24 hours H & H 09/22/20 09/23/20 Range/Units 15:29 05:40 Hgb 15.4 14.0 (13.0-17.5) gm/dL Hct 46.1 43.5 (39.0-53.0) % Coagulation 07/17/20 Range/Units 15:29 INR 1.0 (<1.2) Result Diagrams: 07/18/20 05:40 07/18/20 05:40 - Diagnostic results Lumbar MRI with contrast: report reviewed, image reviewed (imaging of the lumbar spine shows a large disc herniation L4 5 on the right is severe right foraminal stenosis. There is some degenerative disc changes throughout.) Assessment and Plan Assessment: herniated nucleus pulposis L4 5 on the right Right lower extremity radiculopathy Right lower extremity weakness Degenerative disc disease Right lower extremity pain Plan: herniated nucleus pulposis L4 5 on the right Right lower extremity radiculopathy Right lower extremity weakness Degenerative disc disease Right lower extremity pain the patient has a large disc herniation at L4 5 on the right which correlates very well with his low back and lower extremity radicular symptoms. He does demonstrate some weakness of his leg but he has been able to get up and around. I discussed various treatment options with him. He has been on IV steroid with some mild relief I think he could have significant benefit with interventional pain management with epidural steroid intervention. he is a good candidate for lumbar decompression and discectomy as well. the patient would like to try to exhaust conservative measures including interventional pain management and epidural steroid injections prior to surgical intervention. I think is very reasonable. We will have pain management service see him and hopefully he will be able to get an injection during this admission that he will be more comfortable and able to be manageable at home and be able to be discharged after the injection. We can follow him closely as outpatient and if he continues to have improvement we will continue conservative conservative care. However he is not having any prolonged benefit or having significant worsening I think that he would be a candidate for laminectomy decompression and discectomy. I discussed this with him at length and he understands these issues. He is hopeful to pursue conservative treatment at this point with interventional pain management and epidural injections.
[2020-07-19 11:22] LABS: Glucose,Whole Blood 121 mg/dL (75-99)
[2020-07-19] MEDS ORDERED: MAGNESIUM HYDROXIDE 2,400 MG/10 ML CUP PO PRN (11:37)
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
[2020-07-19] MEDS: SODIUM CHLORIDE 0.9% 1,000 ML IV SCH (12:59)
--- NOTE | 2020-07-19 15:37 | PN ---
PROGRESS NOTE DATE OF SERVICE: 07/19/2020 REASON FOR FOLLOWUP: Right hip pain and a question of septic arthritis. INTERVAL HISTORY: The patient is currently afebrile. The patient mentioned his pain has slightly improved. The patient denies having any chest pain. No shortness of breath. No nausea. No abdominal pain, : PHYSICAL EXAMINATION: Blood pressure 136/71 with a pulse of 69, temperature 97.9. He is 95% on room air. General description is an elderly male, lying in bed in no distress. RESPIRATORY SYSTEM: Unlabored breathing, clear to auscultation anteriorly. HEART: S1, S2. Regular rate and rhythm. ABDOMEN: Soft, no tenderness. LABS: No new labs have been obtained today. DIAGNOSTIC IMPRESSION AND PLAN: Patient with right hip and lower back pain with concern for a septic arthritis. Clinically not behaving as septic arthritis. Patient with no fever or elevated white count. His elevated sed rate possibly related to his disc herniation at the lumbosacral spine. Spine Surgery seen the patient and no need for systemic antibiotic therapy. MMODL / IJN: [id number] /
[2020-07-19 16:44] LABS: Glucose,Whole Blood 134 mg/dL (75-99)
[2020-07-20 01:43] VITALS: TEMP 97.8
[2020-07-20] MEDS: SODIUM CHLORIDE 0.9% 1,000 ML IV SCH (03:38)
[2020-07-20] MEDS: HYDROcodone/APAP 5-325MG 1 EACH TAB PO PRN ×2 (06:14→13:12)
[2020-07-20 07:01] LABS: Glucose,Whole Blood 124 mg/dL (75-99)
[2020-07-20 07:02] VITALS: BP 159/85; PULSE 68; RESP 17
[2020-07-20] MEDS: methylPREDNISolone SOD SUCCI 40 MG/ML 1 ML VIAL IV SCH (07:22)
[2020-07-20] MEDS: PANTOPRAZOLE 40 MG TABLET PO SCH (07:22)
[2020-07-20] MEDS: HEPARIN SODIUM,PORCINE 5,000 UNIT/ML 1 ML VIAL SQ SCH (07:22)
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
[2020-07-20] MEDS: LOSARTAN 25 MG TAB PO SCH (09:24)
[2020-07-20] MEDS: SENNOSIDES-DOCUSATE SODIUM 1 EACH TAB PO SCH (09:24)
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
[2020-07-20 11:47] LABS: Glucose,Whole Blood 107 mg/dL (75-99)
== END 2020-07-20 14:24 | disposition home or self-care (01) | DRG 552 ==
LOC: EC 11:59 → 4SSUR 15:00 → OBSVTOIN 07-18 15:10
PROVIDERS: ADMIT Internal Medicine; ATTEND Internal Medicine
DX: M51.16 Intervertebral disc disorders with radiculopathy, lumbar region (principal); G89.29 Other chronic pain; I10 Essential (primary) hypertension; K59.00 Constipation, unspecified; M47.9 Spondylosis, unspecified; M16.11 Unilateral primary osteoarthritis, right hip; Z79.82 Long term (current) use of aspirin; Z79.899 Other long term (current) drug therapy; Z87.891 Personal history of nicotine dependence; Z87.81 Personal history of (healed) traumatic fracture; Z82.49 Family history of ischemic heart disease and other diseases of the circulatory system; Z83.3 Family history of diabetes mellitus; Z82.61 Family history of arthritis; Z83.6 Family history of other diseases of the respiratory system
CPT/HCPCS: 36415; 72100; 72148; 73502; 78315; 80053; 83605; 84145; 85025; 85610; 85652; 85730; 86140; 87040; 93005; 96374; 99285

== ENCOUNTER 2020-07-24 06:15 | Day surgery (SDC) | payer MEDICARE, BC ==
[2020-07-24 06:50] VITALS: RESP 16; TEMP 97.2
[2020-07-24] MEDS ORDERED: LACTATED RINGERS 1,000 ML IV ONE (06:50)
[2020-07-24] MEDS ORDERED: IOPAMIDOL M200 10 ML VIAL ONE (07:20)
[2020-07-24] MEDS ORDERED: fentaNYL (PF) 50 MCG/ML 2 ML AMP ONE (07:20)
[2020-07-24] MEDS ORDERED: methylPREDNISolone ACETATE 40 MG/ML 1 ML VIAL ONE (07:20)
[2020-07-24] MEDS ORDERED: MIDAZOLAM 2 MG/2 ML VIAL ONE (07:20)
--- NOTE | 2020-07-24 07:42 | P.PCN ---
Date of Procedure: 07/24/20 Procedure(s) Performed: PREOPERATIVE DIAGNOSIS:1- Lumbar radiculopathy . 2-lumbar herniated disc disease. 3-lumbar foraminal stenosis POSTOPERATIVE DIAGNOSIS: Same as preoperative diagnoses. PROCEDURE 1. Transforaminal epidural steroid injection under fluoroscopic guidance at right L4-5 level. (Fluoroscopy images stored on file in the radiology Department ) 2. Lumbar epidurogram : ANESTHESIA: Local with 1% lidocaine 3 ml , moderate sedation with intravenous Versed 2 mg and fentanyle 50 micrograms EBL: Minimal PROCEDURE INDICATION: The patient with low back pain and radiculopathy symptoms unresponsive to conservative treatment. PROCEDURE DESCRIPTION / TECHNIQUE: The patient was seen and identified in the preoperative area. Risks, benefits, complications, and alternatives were discussed with the patient. The patient agreed to proceed with the procedure and signed the consent. IV was started, and vital signs were stable. Patient was taken to the OR and time out was completed. The patient was placed in the prone position on procedure table and a pillow was placed under the abdomen to reduce lumbar lordosis. The lumbosacral area was prepped and draped in the usual sterile fashion. Critical pause was taken. Vital signs were closely monitored during the procedure. Conscious sedation was used during the procedure to decrease patient s anxiety. Using oblique fluoroscopy, the chin of the ``Jh dog at right L4-5 level was identified, and the skin and deeper tissues just below was localized with 1% lidocaine. Subsequently, a 22-gauge 3.5-inch spinal needle was advanced under a tunneled view fluoroscopic guidance just underneath the chin of the ``Jh dog at the right L4-5 Under lateral fluoroscopy, the needle was then advanced to the posterior border of the interforaminal space. After negative aspiration of CSF and blood and with no paresthesias, 1 mL Isovue 200 contrast dye was injected excellent epidurogram and outlining of the nerve root Subsequently, 3 mL of block solution containing 80 mg Depo-Medrol and 2 mL of 0.9% normal saline PF was injected. Needle was removed intact . At the end of the procedure, skin was cleansed, and bandages were applied. COMPLICATIONS:none DISPOSITION / PLANS: The patient was placed in a supine position and transferred to the recovery area in a stable condition for observation. There was no evidence of lower extremity motor or sensory deficit after the procedure. Patient was discharged from the recovery room after meeting discharge criteria. Home discharge instructions were given to the patient by the staff. The patient was reexamined prior to discharge.
[2020-07-24] MEDS ORDERED: IV FLUID CONTINUATION 600 ML IV ONE (07:53)
[2020-07-24 08:03] VITALS: BP 154/86; PULSE 65
--- NOTE | 2020-07-24 08:14 | FL ---
Fluoroscopy HISTORY: Pain 4 seconds fluoroscopy time supplied to the referring clinician. 2 intraoperative C-arm images docume nt the procedure. See dictated report from anesthesia.
== END 2020-07-24 08:13 | disposition home or self-care (01) ==
LOC: ORPAIN 06:15
PROVIDERS: ATTEND Specialist
DX: M51.16 Intervertebral disc disorders with radiculopathy, lumbar region (principal); M48.061 Spinal stenosis, lumbar region without neurogenic claudication
CPT/HCPCS: 64483; J2250; J1030; J3010; Q9966

== ENCOUNTER → 2020-07-26 | Outpatient (CLI) | payer MEDICARE, BC ==
--- NOTE | 2020-07-26 14:04 | US ---
EXAMINATION TYPE: US venous doppler duplex LE LT DATE OF EXAM: 07/26/2020 1:00 PM COMPARISON: NONE CLINICAL HISTORY: I82.812 Embolism and thrombosis of superficial vein. tender palpables within left c assisted SIDE PERFORMED: Left TECHNIQUE: The lower extremity deep venous system is examined utilizing real time linear array sonog pura with graded compression, doppler sonography and color-flow sonography. VESSELS IMAGED: External Iliac Vein (EIV) Common Femoral Vein Deep Femoral Vein Greater Saphenous Vein * Femoral Vein Popliteal Vein Small Saphenous Vein * Proximal Calf Veins (* superficial vessels) Left Leg: Internal echoes within peroneal veins and they are not compressible. Mid calf GSV thrombus seen at area of palpable and tenderness. IMPRESSION: Suspect DVT of the peroneal veins as well as the superficial thrombus within the greater saphenous vein.
== END | disposition home or self-care (01) ==
LOC: RADUSWWP 12:41
PROVIDERS: ATTEND Internal Medicine
DX: I82.812 Embolism and thrombosis of superficial veins of left lower extremity (principal)

== ENCOUNTER 2020-08-09 12:03 | Day surgery (SDC) | payer MEDICARE, BC ==
[2020-08-08 09:25] VITALS: BMI 33.5
[~2020-08-09 12:03] MED LIST: LACTATED RINGERS 1,000 ML IV SCH
[2020-08-09 12:37] VITALS: TEMP 97.7
[2020-08-09] MEDS ORDERED: fentaNYL (PF) 50 MCG/ML 2 ML AMP ONE (12:52)
[2020-08-09] MEDS ORDERED: DEXAMETHASONE SOD PHOSPHATE 10 MG/ML 1 ML VIAL ONE (12:52)
[2020-08-09] MEDS ORDERED: LIDOCAINE 1% INJ 10MG/ML (20 ML MDV) ONE (12:52)
[2020-08-09] MEDS ORDERED: MIDAZOLAM 2 MG/2 ML VIAL ONE (12:52)
[2020-08-09] MEDS ORDERED: IOPAMIDOL M200 10 ML VIAL ONE (12:52)
--- NOTE | 2020-08-09 13:09 | P.PCN ---
Date of Procedure: 08/09/20 Surgeon: Meryl Aponte Pathology: none sent Condition: stable Disposition: PACU Description of Procedure: PREOPERATIVE DIAGNOSIS: Lumbar radiculopathy POSTOPERATIVE DIAGNOSIS: Lumbar radiculopathy PROCEDURE 1. Transforaminal epidural steroid injection under fluoroscopic guidance at the L4 5 level on the right side 2. Lumbar epidurogram. SURGEON: Meryl Aponte MD EVENTS MANAGER: ANESTHESIA: Local with 1% lidocaine; IV sedation with Versed and fentanyl. EBL: Minimal PROCEDURE INDICATION: The patient with low back pain and radiculopathy symptoms unresponsive to conservative treatment. PROCEDURE DESCRIPTION / TECHNIQUE: The patient was seen and identified in the preoperative area. Risks, benefits, complications, and alternatives were discussed with the patient. The patient agreed to proceed with the procedure and signed the consent. IV was started, and vital signs were stable. Patient was taken to the OR and time out was completed. The patient was placed in the prone position on procedure table and a pillow was placed under the abdomen to reduce lumbar lordosis. The lumbosacral area was prepped and draped in the usual sterile fashion. Critical pause was taken. Vital signs were closely monitored during the procedure. Conscious sedation was used during the procedure to decrease patients anxiety. The vertebral body of the lumbar vertebra L4 was squared off by tilting the C-arm cephalad then the C-arm was tilted to the right oblique position and the target point was at the 6 o'clock position of the pedicle of L4 then skin and deeper tissues were localized with 1% lidocaine. Subsequently, a 22-gauge 5-inch spinal needle was advanced under a tunneled view fluoroscopic guidance just underneath the chin of the Jh dog at the . Under lateral fluoroscopy, the needle was then advanced to the middle of the upper one third of the foramen between(L4-L5 ). After negative aspiration of CSF and blood and with no paresthesias, 1 mL of omnipaque contrast dye was injected excellent epidurogram and outlining of the L nerve root was identified. Subsequently, 2 mL of block solution containing 10 mg of Decadron and 1 mL of Lidocaine 1% PF was injected. Needle was removed and the same . At the end of the procedure, skin was cleansed, and bandages were applied. COMPLICATIONS: None COMMENTS: DISPOSITION / PLANS: The patient was placed in a supine position and transferred to the recovery area in a stable condition for observation. There was no evidence of lower extremity motor or sensory deficit after the procedure. Patient was discharged from the recovery room after meeting discharge criteria. Home discharge instructions were given to the patient by the staff.
[2020-08-09] MEDS ORDERED: IV FLUID CONTINUATION 1,000 ML IV ONE (13:11)
[2020-08-09 13:15] VITALS: RESP 18
[2020-08-09 13:33] VITALS: BP 115/66; PULSE 65
--- NOTE | 2020-08-09 16:46 | FL ---
EXAMINATION TYPE: FL guided pain mgmt statistic DATE OF EXAM: 08/09/2020 COMPARISON: NONE HISTORY: Right transforaminal injection TECHNIQUE: Fluoroscopy. FINDINGS: Fluoroscopic guidance was provided during procedure performed by Dr. Aponte. A total of 13 seconds of fluoroscopic time was utilized during the procedure and 2 spot images was acquired. IMPRESSION: As Above.
== END 2020-08-09 13:41 | disposition home or self-care (01) ==
LOC: ORPAIN 12:03
PROVIDERS: ATTEND Anesthesiology
DX: M54.16 Radiculopathy, lumbar region (principal); I10 Essential (primary) hypertension; Z79.82 Long term (current) use of aspirin
CPT/HCPCS: 64483; J2250; J1100; J2001; J3010; Q9966; 99152

== ENCOUNTER → 2020-09-03 | Outpatient (CLI) | payer MEDICARE, BC ==
[2020-09-03 11:30] VITALS: BP 134/78; PULSE 64; RESP 16; TEMP 98.6
--- NOTE | 2020-09-04 11:38 | P.PN ---
Subjective Progress Note Date: 09/03/20 This is a follow-up visit for this 75 years old male with a CT of severe low back pain is diagnosed with lumbar radiculopathy lumbar foraminal stenosis and lumbar degenerative disc disease, previously we have done transforaminal epidural steroid injections 2 Patient reported that his pain improved more than 90%, is able to function he is able to ambulate without difficulty he denies any motor or sensory deficit, denies any fever or night sweats and there is no change in the motor movement on urination Objective - Vital Signs Vital signs: Vital Signs Temp 98.6 F 09/03/20 11:24 Pulse 64 09/03/20 11:24 Resp 16 09/03/20 11:24 BP 134/78 09/03/20 11:24 Pulse Ox 96 09/03/20 11:24 - Exam Physical Examinations : -Constitutiona : Cooperative , not in acute distress . -HEENT : nech : supple , no Lymphadenopathy , normal thyroid size . : eyes : no ptosis , no icterus, no photophobia . - neurologic : Cranial nerve II to XII intact , no focal neurological deffecit . -psychatric : alert , oriented X 3 , appropriate affect , intact judgment and insight . -Lymphatic : no Lymphadenopathy . - musculoskeltal : Lumber spine moter stegnth lower extremities ,thigh and legs 5/5 Right side , 5/5 Left side Assessment and Plan Plan: Assessment and plan=1-lumbar radiculopathy. 2-lumbar foraminal stenosis. 3-lumbar degenerative disc disease. Plan improved significantly after transforaminal epidural steroid injections 2 patient will follow up in the pain clinic when necessary - PQRS measures = - Patient's medications are documented in the chart. -Tobacco use is negative and counseling.Given. -Patient's has not received pneumococcal vaccine. -Advanced care planning discussed, patient not eligible. -Opiate contract signed. -Pain positive and follow-up when necessary -Patient's blood pressure measured [ 134/78 ] , and documented in the record ,and patient will follow up with the primary care. -Patient's weight was measured and body mass index [ 32.9] above the normal limits and counseling was done. and patient instructed to follow-up with the primary care physician. -Patient was not identified as an unhealthy alcohol user Time with Patient: Less than 30
== END | disposition home or self-care (01) ==
LOC: PNWHC3 10:51
PROVIDERS: ATTEND Specialist
DX: M48.061 Spinal stenosis, lumbar region without neurogenic claudication (principal); M51.16 Intervertebral disc disorders with radiculopathy, lumbar region
CPT/HCPCS: 99211

== ENCOUNTER → 2021-03-27 | Outpatient (CLI) | payer MEDICARE, BC ==
--- NOTE | 2021-03-27 15:25 | XR ---
EXAMINATION TYPE: XR knee limited RT DATE OF EXAM: 03/27/2021 COMPARISON: NONE HISTORY: Pain TECHNIQUE: Two views are submitted. FINDINGS: Narrowing of the medial compartment and patellofemoral joint with small hypertrophic spurs. Mild diff use osteopenia. There is a moderate suprapatellar bursal fluid collection.. Osseous structures are i ntact. No acute fracture seen. IMPRESSION: 1. Osteoarthritis. 2. Moderate suprapatellar bursal fluid collection.
== END | disposition home or self-care (01) ==
LOC: RADXRMAIN 15:04
PROVIDERS: ATTEND Internal Medicine
DX: M17.11 Unilateral primary osteoarthritis, right knee (principal); M70.51 Other bursitis of knee, right knee

== ENCOUNTER → 2021-04-04 | Outpatient (CLI) | payer MEDICARE, BC ==
--- NOTE | 2021-04-04 13:23 | NM ---
EXAMINATION TYPE: NM stress cardiolite complete DATE OF EXAM: 04/04/2021 COMPARISON: NONE HISTORY: Shortness of breath TECHNIQUE: After the intravenous administration of 9.7 mCi Tc 99m Sestamibi - Rest images obtained 8 0 minutes post injection. The patient exercised using a SIS protocol and 1 minute prior to peak e xercise was injected with 25.3 mCi Tc 99m Sestamibi - Stress images obtained 10 minutes post injectio n. FINDINGS: Targeted heart rate was achieved during performance of the study. Review of stress and rest SPECT darell ges demonstrates question a tiny area of stress-induced reversibility involving the inferior wall the lateral myocardium felt to be more likely artifactual.. Gated analysis shows normal wall motion wit h an estimated left ventricular ejection fraction of 54 %. IMPRESSION: 1. Suspect the tiny perfusion defect involving the inferior lateral myocardium more likely related to artifact correlate clinically to exclude a small focal area of stress-induced reversible ischemia.
--- NOTE | 2021-04-04 15:37 | EST ---
EXERCISE STRESS AGE: 75 SEX: M HT: 5'7" WT: 230 lbs. PROTOCOL: Yony STAGE: 3 DURATION OF EXERCISE: 8:31 HEART RATE REST: 56 BLOOD PRESSURE REST: 126/77 MAXIMUM HEART RATE ACHIEVED: 138 MAXIMUM BLOOD PRESSURE: 181/71 85% MPHR: 122 100% MPHR: 144 METS: 9.5 INDICATIONS: Abnormal EKG DATE OF SERVICE: 04/04/2021 INDICATION: Chest pain. STRESS DATA: Heart rate is 56, pressure is 126/77 mmHg. Baseline EKG showed sinus mechanism. The patient exercised on the treadmill according to Yony protocol for a total of 8 minute and achieved 9.5 METs with max heart rate was 138, which is about 96% of maximum predicted heart rate and maximum blood pressure was 181/71 mmHg. Clinically, the patient did not have any symptoms and the EKG did not show any significant ST or T-wave abnormalities concerning for ischemia. CONCLUSION: 1. Excellent exercise tolerance. 2. Normal EKG in response to exercise. 3. Please follow up on the Cardiolite portion on a separate report from the Radiology Department. MMODL / IJN: [id number] /
== END | disposition home or self-care (01) ==
LOC: RADNMMAIN 07:46
PROVIDERS: ATTEND Internal Medicine
DX: R07.9 Chest pain, unspecified (principal); R06.02 Shortness of breath
CPT/HCPCS: 93017; 78452; A9500

== ENCOUNTER → 2023-10-15 | Outpatient (CLI) | payer MEDICARE, BC ==
[2023-10-15 10:38] LABS: African American GFR (CKD) >90 (>60 ml/min/1.73 sqM); Blood Urea Nitrogen 8 mg/dL (9-20); Non-African American GFR(CKD) >90 (>60 ml/min/1.73 sqM)
--- NOTE | 2023-10-15 12:31 | CA ---
Transthoracic Echo Report Name: Will Garcia Age: 78 Gender: M : 1945 Exam Date: 10/15/2023 11:34 Exam Location: [facility] Ht (in): 67 Wt (lb): 223 Ordering Physician: Clarita Ba MD Attending/Referring Phys: House Painter Helper Jaylene Bertrand RDCS Procedure CPT: Indications: I25.10 CAD Cardiac Hx: Technical Quality: Fair Contrast 1: Total Dose (mL): Contrast 2: Total Dose (mL): MEASUREMENTS (Male / Female) Normal Values 2D ECHO LV Diastolic Diameter PLAX 4.4 cm 4.2 - 5.9 / 3.9 - 5.3 cm LV Systolic Diameter PLAX 2.7 cm IVS Diastolic Thickness 1.4 cm 0.6 - 1.0 / 0.6 - 0.9 cm LVPW Diastolic Thickness 1.4 cm 0.6 - 1.0 / 0.6 - 0.9 cm LV Relative Wall Thickness 0.6 RV Internal Dim ED PLAX 3.5 cm LA Systolic Diameter LX 3.8 cm 3.0 - 4.0 / 2.7 - 3.8 cm LV Diastolic Volume MOD 4C 151.8 cm??? LV Systolic Volume MOD 4C 62.7 cm??? LV Ejection Fraction MOD 4C 58.7 % LV Cardiac Index MOD 4C 2482.6 cm???/min???m??? LV Diastolic Length 4C 9.4 cm LV Systolic Length 4C 7.7 cm LV Diastolic Volume MOD 2C 69.0 cm??? LV Systolic Volume MOD 2C 26.2 cm??? LV Ejection Fraction MOD 2C 62.1 % LV Cardiac Index MOD 2C 1192.7 cm???/min???m??? LV Diastolic Length 2C 8.5 cm LV Systolic Length 2C 7.0 cm LA Volume 41.9 cm??? 18 - 58 / 22 - 52 cm??? LA Volume Index 18.8 cm???/m??? 16 - 28 cm???/m??? M-MODE Aortic Root Diameter MM 3.7 cm MV E Point Septal Separation 0.6 cm AV Cusp Separation MM 2.3 cm DOPPLER AV Peak Velocity 107.7 cm/s AV Peak Gradient 4.6 mmHg MV Area PHT 2.5 cm??? Mitral E Point Velocity 69.2 cm/s Mitral A Point Velocity 110.2 cm/s Mitral E to A Ratio 0.6 MV Deceleration Time 309.2 ms MV E' Velocity 7.9 cm/s Mitral E to MV E' Ratio 8.8 TR Peak Velocity 239.7 cm/s TR Peak Gradient 23.0 mmHg Right Ventricular Systolic Press 27.6 mmHg FINDINGS Left Ventricle Left ventricular ejection fraction is estimated at 50-55. Left ventricular cavity size normal. Moderate concentric left ventricular hypertrophy. Right Ventricle Right ventricular systolic pressure within normal limits.normal right ventricular size. Right Atrium Normal right atrial size. Left Atrium Normal left atrial size. Mitral Valve Structurally normal mitral valve. No mitral stenosis, regurgitation or prolapse. Aortic Valve Trileaflet aortic valve. No aortic valve stenosis or regurgitation. Aortic valve sclerosis. Tricuspid Valve Structurally normal tricuspid valve. Mild tricuspid regurgitation. Pulmonic Valve Structurally normal pulmonic valve. Trace pulmonic regurgitation. Pericardium No pericardial effusion. Aorta Normal size aortic root and proximal ascending aorta. CONCLUSIONS 1. Left ventricular systolic function borderline normal 2. Mild tricuspid regurgitation with normal pulmonary pressure Previewed by: Dr. Jovi Licea MD (Electronically Signed) Final Date: 15 October 2023 12:30
--- NOTE | 2023-10-15 14:32 | CT ---
EXAMINATION: CT RIGHT LOWER LEG WITH CONTRAST. DATE OF EXAMINATION: 10/15/2023. COMPARISON: None available. INDICATION: Mass/lump in right lower leg. PROCEDURE: Axial CT of the right lower leg was performed with sagittal and coronal reformatted imag es with contrast enhancement. CT dose lowering techniques were used, to include: automated exposure c ontrol, adjustment for patient size, and/or use of iterative reconstruction. 100 mL of Isovue-300 was given intravenously. FINDINGS: There is subcutaneous stranding seen throughout the left lower extremity which is mild which likely r elate to some cellulitic changes and/or edema. There is no drainable fluid collection or mass identif ied. There is extensive varicose vasculature are seen throughout the subcutaneous tissues. There are no acute osseous abnormalities and no osseous destructive process. IMPRESSION: 1. No suspicious mass identified. 2. Cellulitic changes or edematous changes seen within the lower extremity. 3. Extensive varicose vasculature.
== END | disposition home or self-care (01) ==
LOC: RADCTMAIN 09:27
PROVIDERS: ATTEND Internal Medicine
DX: I25.10 Atherosclerotic heart disease of native coronary artery without angina pectoris (principal); I36.1 Nonrheumatic tricuspid (valve) insufficiency; R22.41 Localized swelling, mass and lump, right lower limb
CPT/HCPCS: 93306; 82565; 84520; 73701; 36415; Q9967

== ENCOUNTER → 2023-10-15 | Outpatient (CLI) | payer MEDICARE, BC ==
--- NOTE | 2023-10-15 20:56 | US ---
EXAMINATION TYPE: US carotid duplex BILAT DATE OF EXAM: 10/15/2023 COMPARISON: NONE CLINICAL INDICATION: Male, 78 years old with history of I65.23 carotid stenosis, Z13.6 screening for AAA; Patient denies any signs or symptoms at this time TECHNIQUE: Carotid duplex ultrasound examination. Indirect Doppler criteria was utilized. FINDINGS: EXAM MEASUREMENTS: RIGHT: Peak Systolic Velocity (PSV) cm/sec ----- Right CCA: 119 ----- Right ICA: 98 ----- Right ECA: 124 ICA/CCA ratio: 0.8 RIGHT: End Diastole cm/sec ----- Right CCA: 27 ----- Right ICA: 25 ----- Right ECA: 11 LEFT: Peak Systolic Velocity (PSV) cm/sec ----- Left CCA: 102 ----- Left ICA: 72 ----- Left ECA: 89 ICA/CCA ratio: 0.7 LEFT: End Diastole cm/sec ----- Left CCA: 25 ----- Left ICA: 24 ----- Left ECA: 11 VERTEBRALS (direction of flow): Right Vertebral: Antegrade Left Vertebral: Antegrade Rhythm: Normal FISHING FLOATS ASSEMBLER NOTES: Plaque seen at right CCA Bulb and left CCA bulb extending into proximal ICA, no in timal thickening seen. IMPRESSION: No hemodynamically significant internal carotid artery stenosis on either side. Criteria for Assigning % of Stenosis / Diameter reduction (Estimation based on the indirect measurements of the internal carotid artery velocities (ICA PSV). 1. Normal (no stenosis)=ICA PSV < 125 cm/s: ratio < 2.0: ICA EDV<40 cm/s. 2. Less than 50% stenosis=ICA PSV < 125 cm/s: ratio < 2.0: ICA EDV<40 cm/s. 3. 50 to 69% stenosis=ICA PSV of 125 to 230 cm/s: ration 2.0 ? 4.0: ICA EDV 40-100 cm/s. 4. Greater than 70% stenosis to near occlusion= ICA PSV > 230 cm/s: ratio > 4.0: ICA EDV > 100 cm/s. 5. Near occlusion= ICA PSV velocities may be low or undetectable: variable ratio and ICA EDV. 6. Total occlusion=unable to detect flow.
--- NOTE | 2023-10-15 21:45 | US ---
EXAMINATION TYPE: US duplex aorta DATE OF EXAM: 10/15/2023 COMPARISON: NONE CLINICAL INDICATION: Male, 78 years old with history of I65.23 carotid stenosis, Z13.6 screening for AAA; Patient denies any signs or symptoms TECHNIQUE: Multiple sonographic images of the abdominal aorta are obtained. FINDINGS: EXAM MEASUREMENTS: Abdominal Aorta: Proximal: 2.4 x 2.6 Mid: 2.3 x 2.4 Distal: 2.0 x 2.4 Bifurcation: Right Iliac: 2.1 x 2.0 Left Iliac: 2.1 x 2.4 PRIVATE EYE NOTES: Dilated bilateral proximal iliac arteries. IMPRESSION: 1. 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 2. Ectatic proximal abdominal aorta at 2.6 cm. No evidence for AAA.
== END | disposition home or self-care (01) ==
LOC: RADUSWWP 08:37
PROVIDERS: ATTEND Internal Medicine
DX: Z13.6 Encounter for screening for cardiovascular disorders (principal); I65.23 Occlusion and stenosis of bilateral carotid arteries; I77.811 Abdominal aortic ectasia; I72.3 Aneurysm of iliac artery
CPT/HCPCS: 93880; 93979